=== PATIENT | female | born 1965 | race Caucasian/White ===

== ENCOUNTER 2022-03-31 23:43 | Emergency (ER) | payer MEDICAID ==
[~2022-03-31] VITALS: Ht 152.4 cm; Wt 90.7 kg
--- NOTE | 2022-04-01 00:40 | NUR ---
FLORENTIN POSS BUG BITE TO BACK OF LEFT CALF. PLACED PATIENT IN BED.VITALS CHECKED.
[2022-04-01] MEDS ORDERED: CEPH500C2 PO ×2 (01:29→10:45)
[2022-04-01] MEDS ORDERED: predniSONE 20 MG TABLET ONE (01:29)
[2022-04-01] MEDS ORDERED: diphenhydrAMINE HCL 50 MG CAPSULE ONE (01:29)
[2022-04-01] MEDS ORDERED: CEPHALEXIN MONOHYDRATE 500 MG CAPSULE PO ONE ×2 (01:29→01:30)
[2022-04-01] MEDS ORDERED: EPIN0.3P3 IM ×2 (01:29→10:45)
[2022-04-01] MEDS ORDERED: PRED20TA PO ×2 (01:29→10:45)
[2022-04-01] MEDS ORDERED: diphenhydrAMINE HCL 25 MG CAPSULE PO ONE (01:30)
[2022-04-01] MEDS ORDERED: IBUPROFEN 600 MG TABLET PO ONE (01:30)
[2022-04-01] MEDS ORDERED: predniSONE 20 MG TABLET PO ONE (01:30)
[2022-04-01] MEDS ORDERED: IBUPROFEN 600 MG TABLET ONE (01:30)
[2022-04-01] MEDS ORDERED: HYDROCODONE/APAP 5/325MG TABLET ONE (01:38)
[2022-04-01] MEDS ORDERED: HYDROCODONE/APAP 5/325MG TABLET PO ONE (02:00)
[2022-04-01 02:01] VITALS: BP 139/70
--- NOTE | 2022-04-01 02:01 | NUR ---
Patient discharged to home in stable condition. Written and verbal after care instructions given. Patient verbalizes understanding of instruction.
== END 2022-04-01 02:02 | disposition home or self-care (01) ==
LOC: ER 23:47
DX: M79.89 Other specified soft tissue disorders (principal); M79.605 Pain in left leg; Z60.2 Problems related to living alone
CPT/HCPCS: 99284; Q0163; J7512